=== PATIENT | male | born 1980 ===

== ENCOUNTER 2024-12-15 12:54 | Emergency (ER) | payer BC ==
[2024-12-15] MEDS: fentaNYL 50 MCG/ML SDV IVPUSH ONE (13:04)
[2024-12-15 13:05] LABS: BASOPHILS ABSOLUTE AUTO 0.05 K/uL (0.00-0.20); BASOPHILS PERCENT AUTO 0.2 % (0.0-2.0); EOSINOPHILS ABSOLUTE AUTO 0.02 K/uL (0.00-0.50); EOSINOPHILS PERCENT AUTO 0.1 % (0.0-5.0); IMMATURE GRAN ABSOLUTE AUTO 0.06 10^3/uL (0.00-0.04); IMMATURE GRAN PERCENT AUTO 0.3 % (0.0-0.4); LYMPHOCYTES ABSOLUTE AUTO 1.33 K/uL (0.50-3.50); LYMPHOCYTES PERCENT AUTO 6.3 % (10.0-50.0); MONOCYTES ABSOLUTE AUTO 1.54 K/uL (0.00-1.00); MONOCYTES PERCENT AUTO 7.3 % (2.0-14.0); NEUTROPHILS ABSOLUTE AUTO 18.23 K/uL (1.40-7.00); NEUTROPHILS PERCENT AUTO 85.8 % (45.0-80.0); PLATELET COUNT,PLT 236 K/uL (150-350); RED BLOOD CELL COUNT 5.25 M/uL (4.33-5.41); RED CELL DISTRIBUTION WIDTH 12.3 % (11.2-14.1); WHITE BLOOD CELL COUNT,WBC 21.2 K/uL (4.0-10.2)
[2024-12-15] MEDS: Ondansetron 4 MG/2 ML SDV IVPUSH ONE ×2 (13:13→16:48)
[2024-12-15 13:24] LABS: ALANINE AMINOTRANSFERASE,ALT 34 U/L (12-78); ASPARTATE AMNIOTRANSFERASE,AST 23 U/L (15-37); BILIRUBIN TOTAL 0.7 mg/dL (0.2-1.0); BLOOD UREA NITROGEN,BUN 14 mg/dL (7-18); CARBON DIOXIDE,CO2 21.2 mmol/L (21.0-32.0); CHLORIDE,CL 103 mmol/L (98-107); CREATININE 1.34 mg/dL (0.51-1.17); GLUCOSE RANDOM 135 mg/dL (70-99); POTASSIUM,K 3.1 mmol/L (3.5-5.1); PROTEIN TOTAL,TP 8.0 g/dL (6.4-8.2); SODIUM,NA 141 mmol/L (136-145)
[2024-12-15 13:26] LABS: ESTIMATED GFR 67 mL/min (>=60)
[2024-12-15] MEDS: Aluminum Hydroxide/Magnesium Hydroxide/Simethicone Susp 30 ML Cup PO ONE (13:28)
[2024-12-15] MEDS: Lidocaine 2% Viscous Solution 15 ML UD PO ONE (13:28)
[2024-12-15] MEDS ORDERED: Iopamidol 612 MG/ML 100 ML Bottle ONE (13:32)
[2024-12-15] MEDS ORDERED: Naloxone 0.4 MG/ML SDV IVPUSH PRN (13:57)
[2024-12-15] MEDS: Iopamidol 612 MG/ML 100 ML Bottle IVPUSH ONE (14:09)
[2024-12-15] MEDS: metroNIDAZOLE/Normal Saline 500 MG in Premix Bag 1 BAG IV ONE (15:40)
[2024-12-15] MEDS: Potassium Bicarbonate/Cit Ac 20 MEQ Effervescent Tab PO ONE ×2 (16:24→17:00)
== END 2024-12-15 17:17 ==
LOC: LL.ED 12:54
DX: K35.30 Acute appendicitis with localized peritonitis, without perforation or gangrene (principal); Z79.899 Other long term (current) drug therapy
CPT/HCPCS: 36415; 74177; 80053; 83605; 83690; 83735; 85025; 96361; 96365; 96375; 96376; 99285; A9270; J0696; J1171; J1836; J2405; J3010; J7030; Q9967